=== PATIENT | female | born 1970 | race Caucasian/White ===

== ENCOUNTER 2017-06-24 10:10 | Outpatient (CLI) ==
--- NOTE | 2017-06-24 11:03 | CT ---
EXAM: CT cervical spine without contrast. HISTORY: Neck pain radiating to the left arm. COMPARISON: Radiograph 07/19/2011. TECHNIQUE: Multiple axial images of the cervical spine were obtained without intravenous contrast. Images were reformatted in the sagittal and coronal planes. FINDINGS: There is less than 0.2 cm anterolisthesis of C3 on C4 and C4 on C5. Otherwise, there is n ormal curvature and alignment. Vertebral body and intervertebral disc heights are maintained. No fr acture or subluxation is seen. The prevertebral soft tissues are unremarkable. C2-3: No neural compromise. C3-4: Uncovertebral hypertrophy and facet arthropathy cause moderate left neural foraminal narrowing . C4-5: Facet arthropathy with mild left neural foraminal narrowing. C5-6: Facet arthropathy without neural compromise. C6-7: No neural compromise. C7-T1: No neural compromise. IMPRESSION: Facet arthropathy with moderate left C3-4 and mild left C4-5 neural foraminal narrowing.
== END 2017-06-24 10:11 | disposition home or self-care (01) ==
LOC: RAD 10:10
PROVIDERS: ATTEND Internal Medicine
DX: M54.2 Cervicalgia (principal)